=== PATIENT | female | born 1980 | race Two or more races ===

== ENCOUNTER 2019-02-28 19:13 | Emergency (ER) | payer BC ==
[~2019-02-28] VITALS: Ht 157.5 cm; Wt 68.0 kg
--- NOTE | 2019-02-28 19:51 | NUR ---
BIBS. C/O "CONGESTION/COUGH X7 DAYS, SEEN AT URGENT CARE X2 DAYS AGO. GIVEN INHALER, ITS NOT WORKING" -SOB NOTED. +COUGH. +CONGESTION. AOX4. AMBULATORY W.STEADY GAIT. VSS
[2019-02-28] MEDS ORDERED: HYDROCODONE BIT/HOMATROPINE 5 ML UDC ONE (19:56)
[2019-02-28] MEDS ORDERED: predniSONE 20 MG TABLET ONE (19:57)
[2019-02-28] MEDS ORDERED: ALBUTEROL FS 2.5 MG/3 ML VIAL.NEB ONE (19:59)
[2019-02-28] MEDS ORDERED: IPRATROPIUM NEB FS 0.5 MG/2.5 ML AMPUL.NEB ONE (19:59)
[2019-02-28] MEDS ORDERED: IPRATROPIUM NEB FS 0.5 MG/2.5 ML AMPUL.NEB NEB ONE (20:00)
[2019-02-28] MEDS ORDERED: HYDROCODONE BIT/HOMATROPINE 5 ML UDC PO ONE (20:00)
[2019-02-28] MEDS ORDERED: predniSONE 20 MG TABLET PO ONE (20:00)
[2019-02-28] MEDS ORDERED: ALBUTEROL FS 2.5 MG/3 ML VIAL.NEB NEB ONE (20:00)
[2019-02-28 21:31] VITALS: BP 120/81
== END 2019-02-28 21:33 | disposition home or self-care (01) ==
LOC: ER 19:17
DX: J45.909 Unspecified asthma, uncomplicated (principal)
CPT/HCPCS: 71045; 94640; 99283; J7512

== ENCOUNTER 2019-03-09 01:36 | Emergency (ER) | payer BC ==
[~2019-03-09] VITALS: Ht 157.5 cm; Wt 68.0 kg
--- NOTE | 2019-03-09 02:31 | NUR ---
PT BIBSELF C/O BACK PAIN X1 DAY. RADIATES TO RIGHT LEG. DENIES TRAUMA, DYSURIA, HEMATURIA, FEVER. PT AAOX4. RESPIRATIONS EVEN AND UNLABORED. SKIN WARM AND INTACT. ABLE TO AMBULATE STEADY GAIT. WILL CONTINUE TO MONITOR
--- NOTE | 2019-03-09 03:00 | NUR ---
MD AT BEDSIDE FOR EVALUATION
[2019-03-09] MEDS ORDERED: MORPHINE SULFATE INJ 2 MG/ML DISP.SYRIN ONE (03:10)
--- NOTE | 2019-03-09 03:15 | NUR ---
IV INITIATED LEFT AC 18G. LABS DRAWN FROM SITE. MACHINE MAINTENANCE SUPERVISOR AT BEDSIDE FOR BLOOD DRAW
[2019-03-09 03:20] LABS: APPEARANCE,URINE CLEAR (CLEAR); BILIRUBIN,URINE NEGATIVE (NEGATIVE); BLOOD, URINE NEGATIVE Ery/uL (NEGATIVE); COLOR,URINE YELLOW (YELLOW); KETONES,URINE NEGATIVE (NEGATIVE); LEUKOCYTE ESTERASE ,URINE NEGATIVE (NEGATIVE); NITRITE, URINE NEGATIVE (NEGATIVE); PH,URINE 6.5 (5.0-8.0); PROTEIN,URINE NEGATIVE (NEGATIVE); UGLUCOSE NEGATIVE (NEGATIVE); UROBILINOGEN,URINE 0.2 EU/dL (0.2)
[2019-03-09 03:26] LABS: BASOPHILS % (AUTO) 0.7 % (0.0-2.0); EOSINOPHILS % (AUTO) 4.2 % (0.0-6.0); HEMATOCRIT 38 % (33-45); LYMPHOCYTES # (AUTO) 2.6 /CMM (0.8-4.8); LYMPHOCYTES % (AUTO) 45.2 % (20.0-44.0); MEAN CORPUSCULAR HGB CONC 37 g/dl (31.0-36.0); MEAN CORPUSCULAR VOLUME 85 fL (82-100); MONOCYTES # (AUTO) 0.5 /CMM (0.1-1.30); MONOCYTES % (AUTO) 8.1 % (2.0-12.0); NEUTROPHILS # (AUTO) 2.4 /CMM (1.8-8.9); NEUTROPHILS % (AUTO) 41.8 % (43.0-81.0); PLATELET COUNT (AUTO) 264 /CMM (150-450); RED BLOOD CELL COUNT(AUTO) 4.48 MIL/uL (4.0-5.2); WHITE BLOOD COUNT (AUTO) 5.7 K/uL (4.3-11.0)
[2019-03-09] MEDS ORDERED: MORPHINE SULFATE INJ 2 MG/ML DISP.SYRIN IV ONE (03:30)
[2019-03-09 04:06] LABS: CARBON DIOXIDE 17 mmol/L (21-32); CHLORIDE 103 mmol/L (98-107); CREATININE 0.6 mg/dL (0.6-1.3); GLUCOSE 123 mg/dL (74-106); SODIUM SERUM 136 mmol/L (136-145); UREA NITROGEN, BLOOD 10 mg/dL (7-18)
[2019-03-09 04:11] LABS: ALANINE AMINOTRANSFERASE 15 U/L (12-78); ALBUMIN 3.1 g/dL (3.4-5.0); ALKALINE PHOSPHATASE 69 U/L (46-116); BILIRUBIN,TOTAL 0.3 mg/dL (0.2-1.0); LIPASE 241 U/L (73-393); TOTAL PROTEIN, SERUM 6.7 g/dL (6.4-8.2)
[2019-03-09 04:12] LABS: ASPARTATE AMINOTRANSFERASE 59 U/L (15-37)
[2019-03-09] MEDS ORDERED: IV NS 0.9% 250 ML IV ONE (04:55)
[2019-03-09] MEDS ORDERED: CT SWABBABLE VALVE TRANS SET 1 EA INFUS.SET MC ONE (04:55)
[2019-03-09] MEDS ORDERED: IOHEXOL-350 100 ML VIAL IV ONE (04:55)
--- NOTE | 2019-03-09 04:55 | NUR ---
PT BROUGHT BY RADIOLOGY FOR CT
--- NOTE | 2019-03-09 05:24 | NUR ---
PT RETURNED FROM CT
[2019-03-09] MEDS ORDERED: KETOROLAC TROMETHAMINE INJ 30 MG/ML VIAL ONE (06:11)
--- NOTE | 2019-03-09 06:26 | NUR ---
Patient discharged to home in stable condition. Written and verbal after care instructions given. Patient verbalizes understanding of instruction. IV removed. Catheter intact and site benign. Pressure and 4x4 applied to site. No bleeding noted.Pt ambulatory with a steady gait
[2019-03-09 06:27] VITALS: BP 112/77
[2019-03-09] MEDS ORDERED: KETOROLAC TROMETHAMINE INJ 30 MG/ML VIAL IV ONE (06:30)
== END 2019-03-09 06:28 | disposition home or self-care (01) ==
LOC: ER 01:37
DX: M54.6 Pain in thoracic spine (principal); R10.9 Unspecified abdominal pain; R07.89 Other chest pain; J45.909 Unspecified asthma, uncomplicated
CPT/HCPCS: 36415; 71275; 80048; 80076; 81001; 83690; 84484; 84702; 85025; 96374; 96375; 99284; J1885; J2270; J7050; Q9967; 81000-TC

== ENCOUNTER 2020-03-14 03:31 | Emergency (ER) | payer BC ==
[~2020-03-14] VITALS: Ht 157.5 cm; Wt 72.6 kg
--- NOTE | 2020-03-14 03:35 | NUR ---
PT BIBSELF C/O URINARY FREQUENCY. PT RECENTLY DX WITH UTI AND FINISHED COURSE OF BACTRIM AND MACROBID, NO RELIEF. PT AAOX4. AMBULATORY WITH STEADY GAIT. VITAL SIGN STABLE. NO ACUTE DISTRESS NOTED AT THIS TIME. WILL CONTINUE TO MONITOR
--- NOTE | 2020-03-14 03:40 | NUR ---
URINE COLLECTED AND SENT TO LAB
[2020-03-14] MEDS ORDERED: AMOXICILLIN TRIHYDRATE 500 MG CAPSULE PO ONE (04:00)
[2020-03-14] MEDS ORDERED: CEFTRIAXONE 1 G VIAL IM ONE (04:00)
[2020-03-14] MEDS ORDERED: CEFTRIAXONE 1 G VIAL ONE (04:11)
[2020-03-14] MEDS ORDERED: LIDOCAINE /MPF 1% VIAL 5 ML VIAL ONE (04:11)
[2020-03-14] MEDS ORDERED: AMOXICILLIN TRIHYDRATE 250 MG CAPSULE ONE (04:12)
--- NOTE | 2020-03-14 04:18 | NUR ---
US AT BEDSIDE
[2020-03-14 04:19] LABS: APPEARANCE,URINE Clear (CLEAR); BILIRUBIN,URINE Negative (NEGATIVE); BLOOD, URINE Negative Ery/uL (NEGATIVE); COLOR,URINE Light yellow (YELLOW); KETONES,URINE Negative (NEGATIVE); LEUKOCYTE ESTERASE ,URINE Negative (NEGATIVE); NITRITE, URINE Negative (NEGATIVE); PROTEIN,URINE Negative (NEGATIVE); UGLUCOSE Negative (NEGATIVE); UROBILINOGEN,URINE 0.2 EU/dL (0.2)
--- NOTE | 2020-03-14 04:40 | NUR ---
Patient discharged to home in stable condition. Written and verbal after care instructions given. Patient verbalizes understanding of instruction.Pt ambulatory with a steady gait
[2020-03-14 04:41] VITALS: BP 134/79
== END 2020-03-14 04:42 | disposition home or self-care (01) ==
LOC: ER 03:34
DX: R35.0 Frequency of micturition (principal); J45.909 Unspecified asthma, uncomplicated
CPT/HCPCS: 76856; 81001; 87086; 96372; 99284; J0696; J3490; 81000-TC

== ENCOUNTER 2021-01-09 00:08 | Emergency (ER) | payer BC ==
[~2021-01-09] VITALS: Ht 160 cm; Wt 72.6 kg
--- NOTE | 2021-01-09 00:15 | NUR ---
PT AAOX4. BIBSELF C/O BILATERAL RIB PAIN AND BACK PAIN. PT STATED PAIN IS CHRONIC X2 YEARS BUT HAS NEVER HURT THIS MUCH. PT PLACED IN BED 9 ON MONITOR AND PULSE OX. AWAITING MD FOR EVAL. NO ACUTE DISTRESS NOTED. PT STATED PAIN COMES AND GOES.
[2021-01-09] MEDS ORDERED: NITROGLYCERIN PACKET 1 GM PACKET ONE (00:25)
[2021-01-09] MEDS ORDERED: HYDROMORPHONE 1 MG/1 ML DISP.SYRIN ONE (00:25)
[2021-01-09] MEDS ORDERED: ONDANSETRON HCL/PF 4 MG/2 ML VIAL ONE (00:25)
[2021-01-09] MEDS ORDERED: LORAZEPAM INJ 2 MG/ML VIAL ONE (00:26)
[2021-01-09] MEDS ORDERED: LORAZEPAM INJ 2 MG/ML VIAL IV ONE (00:30)
[2021-01-09] MEDS ORDERED: HYDROMORPHONE INJ 2 MG/ML DISP.SYRIN IV ONE (00:30)
[2021-01-09] MEDS ORDERED: ONDANSETRON HCL/PF 4 MG/2 ML VIAL IVP ONE (00:30)
[2021-01-09] MEDS ORDERED: NITROGLYCERIN PACKET 1 GM PACKET TD ONE (00:30)
[2021-01-09 00:39] LABS: BASOPHILS # (AUTO) 0.2 /CMM (0.0-0.2); BASOPHILS % (AUTO) 2.6 % (0.0-2.0); EOSINOPHILS % (AUTO) 2.9 % (0.0-6.0); HEMATOCRIT 43 % (33-45); HEMOGLOBIN 15.3 g/dL (11.5-14.8); LYMPHOCYTES # (AUTO) 1.9 /CMM (0.8-4.8); LYMPHOCYTES % (AUTO) 30.4 % (20.0-44.0); MEAN CORPUSCULAR HGB CONC 36 g/dl (31.0-36.0); MEAN CORPUSCULAR VOLUME 90 fL (82-100); MONOCYTES # (AUTO) 0.5 /CMM (0.1-1.30); MONOCYTES % (AUTO) 7.5 % (2.0-12.0); NEUTROPHILS # (AUTO) 3.6 /CMM (1.8-8.9); NEUTROPHILS % (AUTO) 56.6 % (43.0-81.0); PLATELET COUNT (AUTO) 212 /CMM (150-450); RED BLOOD CELL COUNT(AUTO) 4.77 MIL/uL (4.0-5.2); WHITE BLOOD COUNT (AUTO) 6.3 K/uL (4.3-11.0)
--- NOTE | 2021-01-09 00:43 | NUR ---
RADIOLOGY AT BEDSIDE
--- NOTE | 2021-01-09 00:44 | NUR ---
AWAITING FOR PT TO PROVIDE URINE SAMPLE.
[2021-01-09 01:03] LABS: CALCIUM, SERUM 7.9 mg/dL (8.5-10.1); CARBON DIOXIDE 21 mmol/L (21-32); CHLORIDE 104 mmol/L (98-107); CREATININE 0.8 mg/dL (0.6-1.3); GLUCOSE 166 mg/dL (74-106); POTASSIUM 4.4 mmol/L (3.5-5.1); SODIUM SERUM 141 mmol/L (136-145); UREA NITROGEN, BLOOD 15 mg/dL (7-18)
[2021-01-09 01:16] LABS: ALBUMIN 3.5 g/dL (3.4-5.0); ALKALINE PHOSPHATASE 115 U/L (46-116); B-TYPE NATRIURETIC PEPTIDE 19 PG/ML (0-125); BILIRUBIN,TOTAL 0.6 mg/dL (0.2-1.0)
[2021-01-09 01:56] LABS: ALANINE AMINOTRANSFERASE 18 U/L (12-78); ASPARTATE AMINOTRANSFERASE 26 U/L (15-37); TOTAL PROTEIN, SERUM 7.2 g/dL (6.4-8.2)
[2021-01-09 03:04] LABS: D-DIMER 0.24 mg/L(FEU (0.17-0.50)
--- NOTE | 2021-01-09 03:22 | NUR ---
URINE COLLECTED, SENT TO LAB.
[2021-01-09] MEDS ORDERED: OXYC-128 PO (04:33)
[2021-01-09] MEDS ORDERED: CYCL10TA9 PO (04:36)
--- NOTE | 2021-01-09 04:48 | NUR ---
IV removed. Catheter intact and site benign. Pressure and 4x4 applied to site. No bleeding noted.
--- NOTE | 2021-01-09 04:48 | NUR ---
Patient discharged to home in stable condition. Written and verbal after care instructions given. Patient verbalizes understanding of instruction and RX. Pt ambulated out of ED.
[2021-01-09 04:49] VITALS: BP 119/71
== END 2021-01-09 04:49 | disposition home or self-care (01) ==
LOC: ER 00:09
DX: M62.830 Muscle spasm of back (principal); M54.6 Pain in thoracic spine; R07.89 Other chest pain; J45.909 Unspecified asthma, uncomplicated; Z79.899 Other long term (current) drug therapy
CPT/HCPCS: 36415; 71045; 80048; 80076; 83880; 84484 ×2; 84702; 85025; 85378; 85730; 93005; 96374; 96375; 99285; J1170; J2060; J2405